=== PATIENT | female | born 1985 | race African-American/Black ===

== ENCOUNTER 2016-07-24 06:35 | Inpatient (IN) | payer OTHER ==
[2016-07-24 08:33] VITALS: BMI 35.0
[2016-07-24] MEDS ORDERED: AMPICILLIN - 2 GM in SODIUM CHLORIDE 100 ML IVPB ONE (09:00)
[2016-07-24] MEDS ORDERED: LACTATED RINGERS SOLUTION 1,000 ML IV ONE (09:37)
[2016-07-24 10:01] LABS: BASOPHIL 0.4 % (0-2.0); EOSINOPHIL 0.3 % (0-4.5); MCH 27.7 pg (25.7-33.7); MCHC 33.4 g/dl (32.0-36.0); MEAN CELL VOLUME 82.9 fl (80-96); MEAN PLT VOLUME 8.1 fl (7.5-11.1); NEUTROPHILS 79.1 % (42.8-82.8); PLATELET COUNT 212 K/MM3 (134-434); RDW 15.4 % (11.6-15.6); WHITE BLOOD COUNT 12.5 K/mm3 (4.0-10.0)
[2016-07-24 10:14] LABS: INR 0.94 (0.82-1.09); PROTHROMBIN TIME (PATIENT) 10.3 SEC (9.98-11.88)
[2016-07-24 10:24] LABS: ALBUMIN 2.6 g/dl (3.4-5.0); ANION GAP 10 (8-16); BILIRUBIN,TOTAL 0.3 mg/dL (0.2-1.0); CALCIUM 8.9 mg/dL (8.5-10.1); CO2 20 mmol/L (21-32); CREATININE 0.7 mg/dL (0.55-1.02); GLUCOSE,RANDOM 93 mg/dL (74-106); SGOT/AST 12 U/L (15-37); SGPT/ALT 13 U/L (12-78); TOT PROT 6.2 g/dl (6.4-8.2); URIC ACID 4.6 mg/dL (2.6-7.2)
[2016-07-24 10:25] LABS: ALK PHOS 214 U/L (45-117)
[2016-07-24 11:34] LABS: HIV 1 & 2 AB NEGATIVE; HIV 1 AGp24 NEGATIVE
[2016-07-24] MEDS ORDERED: AMPICILLIN - 1 GM in SODIUM CHLORIDE 100 ML IVPB ONE ×2 (13:00→17:00)
[2016-07-24 15:16] LABS: URINE APPEARANCE CLEAR; URINE BILIRUBIN NEGATIVE (NEGATIVE); URINE COLOR LTYELLOW; URINE GLUCOSE (UA) NEGATIVE (NEGATIVE); URINE KETONE NEGATIVE (NEGATIVE); URINE LEUK ESTERASE NEGATIVE (NEGATIVE); URINE NITRITE NEGATIVE (NEGATIVE); URINE PROTEIN NEGATIVE (NEGATIVE); URINE UROBILINOGEN NEGATIVE E.U./dl (0.2-1.0)
[2016-07-24 15:23] LABS: URINE BLOOD 1+ (NEGATIVE)
[2016-07-24 15:57] LABS: URINE MUCUS RARE; URINE RBC 4 /hpf (0-3); URINE WBC 7 /hpf (3-5)
--- NOTE | 2016-07-24 21:36 | HP ---
Past Medical History - Primary Care Physician PCP:: Yrn Barlow - Admission Chief Complaint: 37.4 weeks, rom, IDDM History of Present Illness: 31 yo f edc by sonjulian 08/10/16 c/o rom since 5 am today, clear fluid , cx closed, 50 vx -3 mr on admission, fhr cat 1 irregular contraction History Source: Patient Limitations to Obtaining History: No Limitations - Past Medical History Reproductive: Yes: Fibroids ...: 3 ...Para: 0 ...Term: 0 ...: 0 ...Spon : 2 ...Induced : 0 ...Multiple Gestation: 0 ...LMP: 11/04/15 ...EDC by Angelica: 08/10/16 Additional OB History: hx of second trimester 23 weeks vaginal delivery, baby Endocrine: Yes: Diabetes Mellitus (on insulin , non complient) - Past Surgical History Hx Myomectomy: No Hx Transabdominal Cerclage: No Additional Surgical History: hx of ovarian cancer, s/p debulking and chemo, hx of fibroid uterus - Smoking History Smoking history: Never smoked Have you smoked in the past 12 months: No Aproximately how many cigarettes per day: 0 - Alcohol/Substance Use Hx Alcohol Use: No - Social History History of Recent Travel: No Home Medications - Allergies Allergies/Adverse Reactions: Allergies Allergy/AdvReac Type Severity Reaction Status Date / Time No Known Allergies Allergy Verified 07/24/16 11:16 - Home Medications Home Medications: Ambulatory Orders Vit/Iron Fumarate/FA [ Tablet] 1 each PO DAILY 09/20/14 Insulin Regular, Human [Humulin R U-500 Kwikpen] 22 unit SQ HS 07/24/16 Review of Systems - Review of Systems Constitutional: reports: No Symptoms Eyes: reports: No Symptoms HENT: reports: No Symptoms Neck: reports: No Symptoms Cardiovascular: reports: No Symptoms Respiratory: reports: No Symptoms Gastrointestinal: reports: No Symptoms Genitourinary: reports: No Symptoms Musculoskeletal: reports: No Symptoms Integumentary: reports: No Symptoms Neurological: reports: No Symptoms Endocrine: reports: No Symptoms Hematology/Lymphatic: reports: No Symptoms Psychiatric: reports: No Symptoms Physical Exam - Maternity Vital Signs: Vital Signs Temperature 98.8 F 07/24/16 20:00 Pulse Rate 111 H 07/24/16 20:00 Respiratory Rate 20 07/24/16 18:00 Blood Pressure 159/87 07/24/16 20:00 O2 Sat by Pulse Oximetry (%) Constitutional: Yes: Well Nourished, No Distress, Calm Eyes: Yes: WNL, Conjunctiva Clear, EOM Intact HENT: Yes: WNL, Atraumatic, Normocephalic Neck: Yes: WNL, Supple, Trachea Midline Cardiovascular: Yes: WNL, Regular Rate and Rhythm Breast(s): Yes: WNL - Abdominal Exam/OB Fundal Height: 38 Number of Fetuses: Single Presentation: Vertex Contractions: Yes Regularity: Irregular Intensity: Mod/Strong Monitor Mode: External Heart Rate Location: [facility] Category: I Accelerations: Non-Uniform Decelerations: None - Vaginal Exam/OB Vaginal Bleediing: No Speculum Exam: No Dilatation (cm): closed Effacement (%): 50 Amniotic Membrane Status: Ruptured Nitrazine Test: Positive Amniotic Fluid: Yes: Clear Presentation: Vertex/Position Station: -3 - Physical Exam Musculoskeletal: Yes: WNL Extremities: Yes: WNL Edema: Yes Edema: LLE: 1+, RLE: 1+ Deep Tendon Reflex Grade: Normal +2 Psychiatric: Yes: WNL - Labs Lab Results: CBC, BMP 07/24/16 09:45 07/24/16 09:45 Hemorrhage Risk Assessment - Risk Factors Medium Risk Factors: Yes: Prior , uterine surgery,or multiple laparotomies Risk Score: 1 Risk Level: Medium Risk Problem List - Problems (1) with 37 or more completed weeks gestation Code(s): [id number] - (2) membrane rupture Code(s): PFP0686 - (3) Insulin controlled gestational diabetes mellitus (GDM) during Code(s): O24.414 - GESTATIONAL DIABETES IN , INSULIN CONTROLLED Qualifiers: Trimester: third trimester Qualified Code(s): O24.414 - Gestational diabetes mellitus in , insulin controlled (4) Fibroid uterus Code(s): D25.9 - LEIOMYOMA OF UTERUS, UNSPECIFIED Qualifiers: Uterine leiomyoma location: intramural Qualified Code(s): D25.1 - Intramural leiomyoma of uterus (5) Ovarian cancer Code(s): C56.9 - MALIGNANT NEOPLASM OF UNSPECIFIED OVARY Qualifiers: Laterality: unspecified laterality Qualified Code(s): C56.9 - Malignant neoplasm of unspecified ovary Assessment/Plan admit, heart monitoring, iv ampicillin prophylactic, bgm
--- NOTE | 2016-07-24 21:46 | PN ---
Progress Note (short form) - Note Progress Note: cx 54 to 5 cm, rom ,clear , fhr variable decel with short episode of garry cardia, advised c/s rba discussed, risk of infectin, bleeding, injury to bowel, bladder, vesseles , ureter discusse Problem List - Problems (1) with 37 or more completed weeks gestation Code(s): [id number] - (2) membrane rupture Code(s): WCB1889 - (3) Insulin controlled gestational diabetes mellitus (GDM) during Code(s): O24.414 - GESTATIONAL DIABETES IN , INSULIN CONTROLLED Qualifiers: Trimester: third trimester Qualified Code(s): O24.414 - Gestational diabetes mellitus in , insulin controlled (4) Fibroid uterus Code(s): D25.9 - LEIOMYOMA OF UTERUS, UNSPECIFIED Qualifiers: Uterine leiomyoma location: intramural Qualified Code(s): D25.1 - Intramural leiomyoma of uterus (5) Ovarian cancer Code(s): C56.9 - MALIGNANT NEOPLASM OF UNSPECIFIED OVARY Qualifiers: Laterality: unspecified laterality Qualified Code(s): C56.9 - Malignant neoplasm of unspecified ovary
[2016-07-24] MEDS ORDERED: morphine SULFATE/Preservative Free 0.5 MG/ML (1cc Syringe) IT ONE (22:10)
[2016-07-24] MEDS ORDERED: BENZOCAINE 28 GM HEMORRHOIDAL OINTMENT PR PRN (23:00)
[2016-07-24] MEDS ORDERED: diphenhydrAMINE HCL 25 MG CAPSULE (FP) PO PRN (23:00)
[2016-07-24] MEDS ORDERED: OXYTOCIN 20 UNITS in 0.9% NS 1,000 ML IV SCH (23:00)
[2016-07-24] MEDS ORDERED: oxyCODONE HCL 5 MG TABLET PO PRN ×2 (23:00)
[2016-07-24] MEDS ORDERED: WITCH HAZEL 50% (TUCKS) 40 PAD/JAR PAD TP PRN (23:00)
[2016-07-24] MEDS ORDERED: BENZOCAINE 20% 57 GM BOTTLE TP PRN (23:00)
[2016-07-24] MEDS ORDERED: METHYLERGONOVINE MALEATE 0.2 MG/1 ML AMP IM PRN (23:00)
[2016-07-24 23:30] LABS: ARTERIAL BLOOD GAS pH 7.28 (7.35-7.45)
[2016-07-24 23:31] LABS: ARTERIAL BLOOD GAS HCO3 21.9 meq/L (22-26)
[2016-07-24 23:33] LABS: ARTERIAL BLD GAS O2 SATURATION 31.4 % (90-98.9); ARTERIAL BLOOD GAS PO2 18.6 mmHg (80-100)
[2016-07-24] MEDS ORDERED: ONDANSETRON 4 MG/2 ML VIAL IVPB PRN (23:33)
[2016-07-24 23:35] LABS: ARTERIAL BLOOD GAS pH 7.33 (7.35-7.45)
[2016-07-24 23:36] LABS: ARTERIAL BLOOD GAS BASE EXCESS -5.2 meq/l (-2-2); ARTERIAL BLOOD GAS HCO3 19.9 meq/L (22-26)
[2016-07-24 23:37] LABS: ARTERIAL BLOOD GAS PO2 29.7 mmHg (80-100)
[2016-07-24 23:38] LABS: ARTERIAL BLD GAS O2 SATURATION 59.5 % (90-98.9)
[2016-07-25] MEDS: IBUPROFEN 800 MG/8 ML IJ IVPB PRN ×2 (01:43→10:34)
[2016-07-25] MEDS: CEFAZOLIN (PRE-DOCKED) 50 ML IVPB SCH ×2 (02:51→09:22)
[2016-07-25 03:28] LABS: BASOPHIL 0.3 % (0-2.0); MCH 27.8 pg (25.7-33.7); MCHC 33.3 g/dl (32.0-36.0); MEAN CELL VOLUME 83.5 fl (80-96); NEUTROPHILS 91.1 % (42.8-82.8); PLATELET COUNT 219 K/MM3 (134-434); WHITE BLOOD COUNT 20.4 K/mm3 (4.0-10.0)
--- NOTE | 2016-07-25 07:11 | PN ---
Progress Note (short form) - Note Progress Note: pod 1 s/p c/s doing well, has mild cramps CBC, BMP 07/24/16 09:45 07/24/16 09:45 Last Vital Signs Temp Pulse Resp BP Pulse Ox 99.2 F 107 H 18 132/68 100 07/25/16 06:00 07/25/16 06:00 07/25/16 06:00 07/25/16 06:00 07/25/16 00:15 abdomen soft, no distension , no cva, BS present lochia mild clemons clear urine pod 1 afebrile, plan ambulate cbc. advance diet Problem List - Problems (1) with 37 or more completed weeks gestation Code(s): [id number] - (2) membrane rupture Code(s): LXD2580 - (3) Insulin controlled gestational diabetes mellitus (GDM) during Code(s): O24.414 - GESTATIONAL DIABETES IN , INSULIN CONTROLLED Qualifiers: Trimester: third trimester Qualified Code(s): O24.414 - Gestational diabetes mellitus in , insulin controlled (4) Fibroid uterus Code(s): D25.9 - LEIOMYOMA OF UTERUS, UNSPECIFIED Qualifiers: Uterine leiomyoma location: intramural Qualified Code(s): D25.1 - Intramural leiomyoma of uterus (5) Ovarian cancer Code(s): C56.9 - MALIGNANT NEOPLASM OF UNSPECIFIED OVARY Qualifiers: Laterality: unspecified laterality Qualified Code(s): C56.9 - Malignant neoplasm of unspecified ovary
[2016-07-25 07:29] LABS: BASOPHIL 0.3 % (0-2.0); EOSINOPHIL 0.1 % (0-4.5); MCH 27.9 pg (25.7-33.7); MCHC 33.7 g/dl (32.0-36.0); MEAN CELL VOLUME 82.9 fl (80-96); MEAN PLT VOLUME 8.4 fl (7.5-11.1); NEUTROPHILS 78.6 % (42.8-82.8); PLATELET COUNT 169 K/MM3 (134-434); RDW 15.4 % (11.6-15.6)
[2016-07-25] MEDS ORDERED: TUBERCULIN PPD 5 TU/0.1ML SYRINGE (IN PATIENT USE ONLY) ID ONE (08:00)
--- NOTE | 2016-07-25 08:04 | PN ---
Progress Note (short form) - Note Progress Note: CORRECTION: NOT A PROCEDURE NOTE ANESTHESIOLOGY POST-OP CHECK 31F S/P primary under spinal anesthesia, POD #1. No acute complaints. Denies N/V, headache, backache, numbness, weakness. Not yet OOB, clemons in place. Pain 4-5/10 and tolerable. Vital Signs Temperature 99.2 F 07/25/16 06:00 Pulse Rate 107 H 07/25/16 06:00 Respiratory Rate 20 07/25/16 08:00 Blood Pressure 132/68 07/25/16 06:00 O2 Sat by Pulse Oximetry (%) 100 07/25/16 00:15 Active Medications Acetaminophen (Tylenol -) 650 mg PO Q4H PRN PRN Reason: FEVER OR PAIN Benzocaine (Americaine Ointment -) 1 applic [place] PRN PRN PRN Reason: PAIN Benzocaine (Americaine 20% [place] -) 1 spray TP PRN PRN PRN Reason: PAIN Bisacodyl (Dulcolax Suppository -) 10 mg RC PRN PRN PRN Reason: CONSTIPATION Diphenhydramine HCl (Benadryl -) 25 mg PO Q8H PRN PRN Reason: FOR ITCHING Diphenhydramine HCl (Benadryl Injection -) 25 mg IVPUSH Q4H PRN PRN Reason: Pruritis Enoxaparin Sodium (Lovenox -) 40 mg SQ DAILY ROHAN Cefazolin Sodium (Ancef 1gm Ivpb (Pre-Docked)) 50 mls @ 100 mls/hr IVPB Q8H-IV ROHAN Stop: 07/25/16 10:29 Last Admin: 07/25/16 02:51 Dose: 100 mls/hr Dextrose/Lactated Ringer's (D5-Lr -) 1,000 mls @ 125 mls/hr IV ASDIR ROHAN Ibuprofen (Motrin -) 600 mg PO Q4H PRN PRN Reason: PAIN Ibuprofen (Caldolor Injection -) 800 mg IVPB Q6H PRN PRN Reason: PAIN Stop: 07/25/16 11:01 Last Admin: 07/25/16 01:43 Dose: 800 mg Methylergonovine Maleate (Methergine Injection -) 0.2 mg IM Q4H PRN PRN Reason: EXCESSIVE BLEEDING Oxycodone HCl (Roxicodone -) 5 mg PO Q4H PRN PRN Reason: PAIN LEVEL 1-5 Oxycodone HCl (Roxicodone -) 10 mg PO Q4H PRN PRN Reason: PAIN LEVEL 6-10 Senna/Docusate Sodium (Pericolace -) 2 tablet PO HS PRN PRN Reason: CONSTIPATION Simethicone (Mylicon -) 80 mg PO Q4H PRN PRN Reason: GAS Witch Kerline/Glycerin (Tucks Pads -) 1 pad TP PRN PRN PRN Reason: PAIN Gen: awake, alert Ext: No motor or sensory deficits. No apparent anesthesia complications, pain controlled. Continue management as per primary team.
[2016-07-25] MEDS: ENOXAPARIN NA (PORCINE) 40 MG/0.4 ML DISP.SYRIN SQ SCH (09:23)
--- NOTE | 2016-07-25 10:23 | PN ---
Progress Note, Physician Chief Complaint: Pt. ambulating and voiding, pain controlled, no anesthesia complaints. - Current Medication List Current Medications: Active Medications Acetaminophen (Tylenol -) 650 mg PO Q4H PRN PRN Reason: FEVER OR PAIN Benzocaine (Americaine Ointment -) 1 applic [place] PRN PRN PRN Reason: PAIN Benzocaine (Americaine 20% [place] -) 1 spray TP PRN PRN PRN Reason: PAIN Bisacodyl (Dulcolax Suppository -) 10 mg RC PRN PRN PRN Reason: CONSTIPATION Diphenhydramine HCl (Benadryl -) 25 mg PO Q8H PRN PRN Reason: FOR ITCHING Diphenhydramine HCl (Benadryl Injection -) 25 mg IVPUSH Q4H PRN PRN Reason: Pruritis Enoxaparin Sodium (Lovenox -) 40 mg SQ DAILY ROHAN Last Admin: 07/25/16 09:23 Dose: 40 mg Cefazolin Sodium (Ancef 1gm Ivpb (Pre-Docked)) 50 mls @ 100 mls/hr IVPB Q8H-IV ROHAN Stop: 07/25/16 10:29 Last Admin: 07/25/16 09:22 Dose: 100 mls/hr Dextrose/Lactated Ringer's (D5-Lr -) 1,000 mls @ 125 mls/hr IV ASDIR ROHAN Ibuprofen (Motrin -) 600 mg PO Q4H PRN PRN Reason: PAIN Ibuprofen (Caldolor Injection -) 800 mg IVPB Q6H PRN PRN Reason: PAIN Stop: 07/25/16 11:01 Last Admin: 07/25/16 01:43 Dose: 800 mg Methylergonovine Maleate (Methergine Injection -) 0.2 mg IM Q4H PRN PRN Reason: EXCESSIVE BLEEDING Oxycodone HCl (Roxicodone -) 5 mg PO Q4H PRN PRN Reason: PAIN LEVEL 1-5 Oxycodone HCl (Roxicodone -) 10 mg PO Q4H PRN PRN Reason: PAIN LEVEL 6-10 Senna/Docusate Sodium (Pericolace -) 2 tablet PO HS PRN PRN Reason: CONSTIPATION Simethicone (Mylicon -) 80 mg PO Q4H PRN PRN Reason: GAS Witch Kerline/Glycerin (Tucks Pads -) 1 pad TP PRN PRN PRN Reason: PAIN - Objective Vital Signs: Vital Signs Temperature 98.6 F 07/25/16 08:02 Pulse Rate 113 H 07/25/16 08:02 Respiratory Rate 20 07/25/16 08:02 Blood Pressure 148/80 07/25/16 08:02 O2 Sat by Pulse Oximetry (%) 100 07/25/16 00:15 Constitutional: Yes: Well Nourished, No Distress, Calm Musculoskeletal: Yes: WNL Neurological: Yes: WNL, Alert, Oriented ...Motor Strength: WNL Labs: CBC, BMP 07/25/16 06:45 07/24/16 09:45 INR, PTT INR 0.94 (0.82-1.09) 07/24/16 09:45 Assessment/Plan POD#1 s/p primary under spinal with duramorph. Doing well. D/C from anesthesia care.
[2016-07-25 12:06] LABS: MCH 27.5 pg (25.7-33.7); MCHC 33.3 g/dl (32.0-36.0); MEAN CELL VOLUME 82.5 fl (80-96); MEAN PLT VOLUME 7.6 fl (7.5-11.1); PLATELET COUNT 162 K/MM3 (134-434); RDW 15.7 % (11.6-15.6); WHITE BLOOD COUNT 13.1 K/mm3 (4.0-10.0)
[2016-07-25] MEDS: SIMETHICONE 80 MG TAB.CHEW (FP) PO PRN ×3 (14:34→22:58)
[2016-07-25] MEDS: ACETAMINOPHEN 325 MG TABLET (FP) PO PRN ×3 (14:34→22:57)
--- NOTE | 2016-07-25 14:48 | OP ---
DATE OF OPERATION: 07/24/2016 PROCEDURE: Primary low-segment transverse section. PREOPERATIVE DIAGNOSIS: 1. at 37 weeks. 2. Ruptured membranes. 3. Nonreassuring heart rate. 4. History of insulin-dependent diabetes. 5. Fibroid uterus. 6. History of previous ovarian cancer. SURGEON: Anju Gonzalez MD MANAGER [employer] SALES: Sloane Bautista MD ESTIMATED BLOOD LOSS: 500 mL ANESTHESIA: Spinal. ANESTHESIOLOGIST: Mirza Lambert MD OPERATIVE PROCEDURE: Patient was taken to the operating room. Under adequate spinal anesthesia, abdomen and perineum were prepped and draped. A Pfannenstiel abdominal skin incision was made. Abdominal wall was cut layer by layer until peritoneum was exposed and incised. Upon entering the abdominal cavity, the lower uterine segment was identified and ureterovesical fold of the peritoneum established. Bladder was pushed down. A low thoracic incision was made. Incision extended laterally. Amniotic sac was entered. The head delivered from direct occiput posterior position. Cord around the neck x 1 reduced. Live baby was delivered without any difficulty. Placenta was delivered manually. Uterine cavity was cleaned of all remaining tissue. Uterine incision was closed in 2 layers, first layer with 0 Biosyn continuous suture and the second layer with 0 Biosyn, imbricating the first layer. Bladder flap was closed with 0 Biosyn continuous suture. Both tubes and ovaries were checked. The left tube and ovary were missing because of the previous history of ovarian cancer and history of salpingo-oophorectomy on the left. The right ovary was checked and normal. All the laparotomy sponge, needle and instrument counts were correct, and the peritoneum was closed with 0 Biosyn continuous suture. Muscles were brought together with interrupted suture of 0 Biosyn. Fascia was closed with 0 Biosyn continuous suture, subcutaneous fascia with interrupted suture of 0 Biosyn, and the skin was closed with 3-0 Biosyn subcuticular continuous suture. Patient tolerated the procedure well and left the OR in good condition. ANJU GONZALEZ M.D. [id number]
[2016-07-25] MEDS: IBUPROFEN 600 MG TABLET (FP) PO PRN ×2 (18:11→22:57)
[2016-07-25] MEDS: DEXTROSE 5%-LACTATED RINGERS 1,000 ML IV SCH (19:31)
[2016-07-25 21:55] LABS: MCH 28.4 pg (25.7-33.7); MCHC 33.9 g/dl (32.0-36.0); MEAN CELL VOLUME 83.7 fl (80-96); MEAN PLT VOLUME 7.6 fl (7.5-11.1); PLATELET COUNT 156 K/MM3 (134-434); RDW 15.1 % (11.6-15.6); WHITE BLOOD COUNT 14.1 K/mm3 (4.0-10.0)
[2016-07-25] MEDS ORDERED: BISACODYL 10 MG SUPP.RECT RC PRN (23:00)
[2016-07-26] MEDS: DEXTROSE 5%-LACTATED RINGERS 1,000 ML IV SCH (00:04)
[2016-07-26] MEDS: SIMETHICONE 80 MG TAB.CHEW (FP) PO PRN ×3 (03:47→20:45)
[2016-07-26] MEDS: IBUPROFEN 600 MG TABLET (FP) PO PRN ×2 (03:47→08:18)
[2016-07-26] MEDS: ACETAMINOPHEN 325 MG TABLET (FP) PO PRN ×2 (03:47→08:15)
[2016-07-26] MEDS: ENOXAPARIN NA (PORCINE) 40 MG/0.4 ML DISP.SYRIN SQ SCH (09:04)
[2016-07-26] MEDS ORDERED: NIFEdipine E.R. 30 MG TABLET (FP) PO SCH (16:30)
--- NOTE | 2016-07-26 17:22 | PN ---
Post Progress Note - Subjective Subjective: Pt is c/o leg edema, otherwise no complaints. Denies headache, scotoma, blurry vision, RUQ pain. Post Day: 2 Type of Delivery: Primary C/S Vital Signs: Vital Signs Temperature 98.5 F 07/26/16 14:00 Pulse Rate 107 H 07/26/16 15:03 Respiratory Rate 20 07/26/16 15:03 Blood Pressure 150/96 07/26/16 15:03 O2 Sat by Pulse Oximetry (%) 100 07/25/16 00:15 Breast Exam: Yes: Soft Uterus: Yes: Fundus below umbilicus, Non-tender Incision: Yes: Sutures intact (clean, dry) Abdomen/GI: Yes: Abdomen soft, Tolerating PO Lochia: Yes: Rubra Lochia, amount: Small Extremities: Yes: Calves non-tender Perineum: Yes: Intact Activity: Ambulating - Labs Labs: CBC WBC 14.1 K/mm3 (4.0-10.0) H 07/25/16 21:50 RBC 2.98 M/mm3 (3.60-5.2) L D 07/25/16 21:50 Hgb 8.5 GM/dL (10.7-15.3) L D 07/25/16 21:50 Hct 24.9 % (32.4-45.2) L D 07/25/16 21:50 MCV 83.7 fl (80-96) 07/25/16 21:50 MCHC 33.9 g/dl (32.0-36.0) 07/25/16 21:50 RDW 15.1 % (11.6-15.6) 07/25/16 21:50 Plt Count 156 K/MM3 (134-434) 07/25/16 21:50 MPV 7.6 fl (7.5-11.1) 07/25/16 21:50 Neutrophils % 78.6 % (42.8-82.8) 07/25/16 06:45 Lymphocytes % 13.3 % (8-40) 07/25/16 06:45 Monocytes % 7.7 % (3.8-10.2) 07/25/16 06:45 Eosinophils % 0.1 % (0-4.5) 07/25/16 06:45 Basophils % 0.3 % (0-2.0) 07/25/16 06:45 Retic Count 2.12 % (0.5-1.5) H 07/24/16 09:45 Haptoglobin 150 mg/dL (34-200) 07/24/16 09:45 Assessment/Plan 31 yo P1 s/p primary LT C/S. Elevated BP noted. Plan to check labs and Procardia XL to control BP. Continue routine postop care. Ambulation encouraged.
[2016-07-26 18:20] LABS: BASOPHIL 0.1 % (0-2.0); EOSINOPHIL 0.7 % (0-4.5); MCH 28.2 pg (25.7-33.7); MCHC 33.9 g/dl (32.0-36.0); MEAN CELL VOLUME 83.2 fl (80-96); MEAN PLT VOLUME 8.1 fl (7.5-11.1); NEUTROPHILS 84.1 % (42.8-82.8); PLATELET COUNT 176 K/MM3 (134-434); RDW 15.6 % (11.6-15.6); WHITE BLOOD COUNT 18.3 K/mm3 (4.0-10.0)
[2016-07-26 18:43] LABS: ALBUMIN 2.2 g/dl (3.4-5.0); ALK PHOS 139 U/L (45-117); ANION GAP 10 (8-16); BILIRUBIN,TOTAL 0.3 mg/dL (0.2-1.0); CO2 24 mmol/L (21-32); CREATININE 0.7 mg/dL (0.55-1.02); GLUCOSE,RANDOM 158 mg/dL (74-106); SGOT/AST 19 U/L (15-37); SGPT/ALT 13 U/L (12-78); TOT PROT 5.2 g/dl (6.4-8.2)
[2016-07-26] MEDS: ACETAMINOPHEN WITH CODEINE 300MG/30MG TABLET PO PRN (20:45)
[2016-07-26] MEDS: SENNOSIDES/DOCUSATE COMBO (SENNA PLUS) TABLET (UD) PO PRN (20:46)
[2016-07-26] MEDS: NIFEdipine E.R. 30 MG TABLET (FP) PO SCH (22:48)
[2016-07-27 00:13] LABS: URINE APPEARANCE CLEAR; URINE BILIRUBIN NEGATIVE (NEGATIVE); URINE COLOR COLORLESS; URINE GLUCOSE (UA) NEGATIVE (NEGATIVE); URINE KETONE TRACE (NEGATIVE); URINE LEUK ESTERASE NEGATIVE (NEGATIVE); URINE NITRITE NEGATIVE (NEGATIVE); URINE PROTEIN NEGATIVE (NEGATIVE); URINE UROBILINOGEN NEGATIVE E.U./dl (0.2-1.0)
[2016-07-27 00:33] LABS: URINE BLOOD 2+ (NEGATIVE)
[2016-07-27] MEDS: SIMETHICONE 80 MG TAB.CHEW (FP) PO PRN ×4 (01:20→17:55)
[2016-07-27] MEDS: ACETAMINOPHEN WITH CODEINE 300MG/30MG TABLET PO PRN ×4 (01:21→17:55)
[2016-07-27 01:41] LABS: URINE MUCUS RARE; URINE RBC 25 /hpf (0-3); URINE WBC 1 /hpf (3-5)
[2016-07-27 07:34] LABS: BASOPHIL 0.2 % (0-2.0); EOSINOPHIL 0.4 % (0-4.5); MCH 28.2 pg (25.7-33.7); MCHC 34.4 g/dl (32.0-36.0); MEAN CELL VOLUME 82.2 fl (80-96); MEAN PLT VOLUME 7.5 fl (7.5-11.1); NEUTROPHILS 82.6 % (42.8-82.8); PLATELET COUNT 192 K/MM3 (134-434); RDW 15.3 % (11.6-15.6); WHITE BLOOD COUNT 17.9 K/mm3 (4.0-10.0)
[2016-07-27] MEDS: ENOXAPARIN NA (PORCINE) 40 MG/0.4 ML DISP.SYRIN SQ SCH (09:53)
[2016-07-27] MEDS: NIFEdipine E.R. 30 MG TABLET (FP) PO SCH (09:54)
[2016-07-27] MEDS ORDERED: LABETALOL HCL 200 MG TABLET (FP) PO PRN (10:51)
[2016-07-27 12:24] LABS: BASOPHIL 0.3 % (0-2.0); EOSINOPHIL 0.5 % (0-4.5); MCH 28.2 pg (25.7-33.7); MCHC 33.8 g/dl (32.0-36.0); MEAN CELL VOLUME 83.3 fl (80-96); MEAN PLT VOLUME 7.4 fl (7.5-11.1); PLATELET COUNT 220 K/MM3 (134-434); RDW 15.7 % (11.6-15.6); WHITE BLOOD COUNT 20.8 K/mm3 (4.0-10.0)
--- NOTE | 2016-07-27 15:32 | CONSULT ---
Consult - text type - Consultation Consultation Note: Renal Consult for hypertension and tachycardia This is a 31 year old AA woman with PMhx of ? Hypertension (treated for about 1 month), DM who presented at 37 weeks gestation and now s/p primary with hypertension and elevated HR. Pt denies any hypertension during . On insulin for DM ( induced vs. underlying). Pt reports some back pain and pain at the incision site. + low grade temp. No SOB, Chest pain, KOVACS. + LE edema. No N/V/D. Pt was on Procadia XL for BP control. PMhx: as above Allergies: NKDA Family Hx: NC Social Hx: No T/A/D ROS: as per HPI, all other pertinent ros negative Home Meds: Home Medications Medication Instructions Recorded Vit/Iron Fumarate/FA 1 each PO DAILY 09/20/14 [ Tablet] Insulin Regular, Human [Humulin R 22 unit SQ HS 07/24/16 U-500 Kwikpen] Vital Signs Temperature 98.7 F 07/27/16 13:00 Pulse Rate 130 H 07/27/16 13:00 Respiratory Rate 20 07/27/16 13:00 Blood Pressure 133/83 07/27/16 13:00 O2 Sat by Pulse Oximetry (%) 100 07/25/16 00:15 Intake & Output 07/24/16 07/25/16 07/26/16 07/27/16 23:59 23:59 23:59 23:59 Intake Total 2000 3927 Output Total 430 2150 200 Balance 1570 1777 -200 Weight 204 lb Gen: NAD, well appearing HEENT: NC/AT, MMM, No JVD CVS: tachycardic, No M/R Lungs: CTA, no rales or wheeze Abd: + tenderness Ext: 2+ edema in B/L LE, no clubbing or cyanosis Neuro: No focal defects CBC, BMP 07/27/16 12:00 07/26/16 17:50 Laboratory Tests 07/26/16 07/26/16 07/27/16 17:50 23:58 12:00 MCV 83.3 Uric Acid 5.0 Calcium 8.0 L Albumin 2.2 L Urine Protein Negative Urine Blood 2+ H Current Medications Acetaminophen (Tylenol -) 650 mg PO Q4H PRN PRN Reason: FEVER OR PAIN Last Admin: 07/26/16 08:15 Dose: 650 mg Acetaminophen/Codeine Phosphate (Tylenol # 3 -) 1 tab PO Q4H PRN PRN Reason: FEVER OR PAIN Last Admin: 07/27/16 09:53 Dose: 1 tab Benzocaine (Americaine Ointment -) 1 applic [place] PRN PRN PRN Reason: PAIN Benzocaine (Americaine 20% [place] -) 1 spray TP PRN PRN PRN Reason: PAIN Bisacodyl (Dulcolax Suppository -) 10 mg RC PRN PRN PRN Reason: CONSTIPATION Diphenhydramine HCl (Benadryl -) 25 mg PO Q8H PRN PRN Reason: FOR ITCHING Diphenhydramine HCl (Benadryl Injection -) 25 mg IVPUSH Q4H PRN PRN Reason: Pruritis Last Admin: 07/25/16 16:36 Dose: 25 mg Enoxaparin Sodium (Lovenox -) 40 mg SQ DAILY ROHAN Last Admin: 07/27/16 09:53 Dose: 40 mg Ibuprofen (Motrin -) 600 mg PO Q4H PRN PRN Reason: PAIN Last Admin: 07/26/16 08:18 Dose: 600 mg Labetalol HCl (Normodyne -) 200 mg PO Q6H PRN PRN Reason: BP > 140/90 Methylergonovine Maleate (Methergine Injection -) 0.2 mg IM Q4H PRN PRN Reason: EXCESSIVE BLEEDING Senna/Docusate Sodium (Pericolace -) 2 tablet PO HS PRN PRN Reason: CONSTIPATION Last Admin: 07/26/16 20:46 Dose: 2 tablet Simethicone (Mylicon -) 80 mg PO Q4H PRN PRN Reason: GAS Last Admin: 07/27/16 09:53 Dose: 80 mg Witch Kerline/Glycerin (Tucks Pads -) 1 pad TP PRN PRN PRN Reason: PAIN A/P 31 year old AA woman with PMhx of ? Hypertension (treated for about 1 month), DM who presented at 37 weeks gestation and now s/p primary with hypertension and elevated HR. # Hypertension likely secondary to induced hypertension +/- pain induced hypertension UA showed no protein so less likely preeclampsia Check UPCR Continue Labetalol 200mg PRN for SBP > 140 or DBP > 90 #Tachycardia EKG showed sinus tachycardia Etiology -? Fever ? Anemia ? Pain Pt with persistent LE edema and some tenderness -> check Doppler to r/o DVT ( less likely) Continue to monitor if HR does not improve may need cardiology evaluation Check TSH #Postpatrum Day #2 Supportive Care Pain control #DM not currently on insulin monitor FS Thank you Will follow Bill Chapa DO
--- NOTE | 2016-07-27 19:04 | EKG ---
Test Reason : Blood Pressure : / mmHG Vent. Rate : 119 BPM Atrial Rate : 119 BPM P-R Int : 130 ms QRS Dur : 074 ms QT Int : 310 ms P-R-T Axes : 059 027 029 degrees QTc Int : 436 ms SINUS TACHYCARDIA OTHERWISE NORMAL ECG WHEN COMPARED WITH ECG OF 24-JUL-2016 23:54, NO SIGNIFICANT CHANGE WAS FOUND Confirmed by LORENZO MARCELO MD ([id number]) on 07/27/2016 7:04:17 PM Referred By: Danial LYMAN Confirmed By:LORENZO MARCELO MD
--- NOTE | 2016-07-27 19:05 | EKG ---
Test Reason : Blood Pressure : / mmHG Vent. Rate : 112 BPM Atrial Rate : 112 BPM P-R Int : 122 ms QRS Dur : 068 ms QT Int : 326 ms P-R-T Axes : 054 023 028 degrees QTc Int : 444 ms SINUS TACHYCARDIA OTHERWISE NORMAL ECG NO PREVIOUS ECGS AVAILABLE Confirmed by LORENZO MARCELO MD ([id number]) on 07/27/2016 7:04:38 PM Referred By: Confirmed By:LORENZO MARCELO MD
--- NOTE | 2016-07-27 21:13 | PN ---
Post Progress Note - Subjective Subjective: Pt w/o complaints Post Day: 3 Type of Delivery: Primary C/S Vital Signs: Vital Signs Temperature 98.4 F 07/27/16 21:04 Pulse Rate 116 H 07/27/16 21:04 Respiratory Rate 20 07/27/16 21:04 Blood Pressure 139/66 07/27/16 21:04 O2 Sat by Pulse Oximetry (%) 100 07/25/16 00:15 Breast Exam: Yes: Soft Uterus: Yes: Fundus Firm, Fundus below umbilicus Incision: Yes: Sutures intact Abdomen/GI: Yes: Abdomen soft, Passing flatus, Tolerating PO Lochia: Yes: Rubra Lochia, amount: Small Extremities: Yes: Calves non-tender, Edema Perineum: Yes: Intact Activity: Ambulating - Labs Labs: CBC WBC 20.8 K/mm3 (4.0-10.0) H 07/27/16 12:00 RBC 3.49 M/mm3 (3.60-5.2) L 07/27/16 12:00 Hgb 9.8 GM/dL (10.7-15.3) L 07/27/16 12:00 Hct 29.1 % (32.4-45.2) L 07/27/16 12:00 MCV 83.3 fl (80-96) 07/27/16 12:00 MCHC 33.8 g/dl (32.0-36.0) 07/27/16 12:00 RDW 15.7 % (11.6-15.6) H 07/27/16 12:00 Plt Count 220 K/MM3 (134-434) 07/27/16 12:00 MPV 7.4 fl (7.5-11.1) L 07/27/16 12:00 Neutrophils % 83.0 % (42.8-82.8) H 07/27/16 12:00 Lymphocytes % 10.4 % (8-40) 07/27/16 12:00 Monocytes % 5.8 % (3.8-10.2) 07/27/16 12:00 Eosinophils % 0.5 % (0-4.5) 07/27/16 12:00 Basophils % 0.3 % (0-2.0) 07/27/16 12:00 Retic Count 2.12 % (0.5-1.5) H 07/24/16 09:45 Haptoglobin 150 mg/dL (34-200) 07/24/16 09:45 Assessment/Plan 31 yo P1 s/p primary LT C/S. BP improved. Appreciate Dr. Chapa consult. Continue routine postop care. Ambulation encouraged.
[2016-07-27] MEDS: SENNOSIDES/DOCUSATE COMBO (SENNA PLUS) TABLET (UD) PO PRN (22:28)
[2016-07-28 08:02] VITALS: BP 148/80; PULSE 99; TEMP 98.3
[2016-07-28 08:36] LABS: CREATININE 0.6 mg/dL (0.55-1.02)
[2016-07-28 08:46] LABS: THYROID STIMULATING HORMONE 1.05 uIU/ml (0.358-3.74)
[2016-07-28] MEDS: ENOXAPARIN NA (PORCINE) 40 MG/0.4 ML DISP.SYRIN SQ SCH (10:16)
[2016-07-28] MEDS: ACETAMINOPHEN WITH CODEINE 300MG/30MG TABLET PO PRN (11:23)
--- NOTE | 2016-07-28 12:34 | PN ---
Post Progress Note - Subjective Subjective: Feels well. Desires to go home. Post Day: 4 Type of Delivery: Primary C/S Vital Signs: Vital Signs Temperature 98.3 F 07/28/16 07:58 Pulse Rate 99 H 07/28/16 07:58 Respiratory Rate 20 07/28/16 07:58 Blood Pressure 148/80 07/28/16 07:58 O2 Sat by Pulse Oximetry (%) 100 07/25/16 00:15 Breast Exam: Yes: Soft Uterus: Yes: Fundus Firm, Fundus below umbilicus, Non-tender Incision: Yes: Sutures intact Abdomen/GI: Yes: Abdomen soft, Passing flatus, Tolerating PO Lochia: Yes: Rubra Lochia, amount: Small Extremities: Yes: Calves non-tender, Edema Perineum: Yes: Intact Activity: Ambulating - Labs Labs: CBC WBC 20.8 K/mm3 (4.0-10.0) H 07/27/16 12:00 RBC 3.49 M/mm3 (3.60-5.2) L 07/27/16 12:00 Hgb 9.8 GM/dL (10.7-15.3) L 07/27/16 12:00 Hct 29.1 % (32.4-45.2) L 07/27/16 12:00 MCV 83.3 fl (80-96) 07/27/16 12:00 MCHC 33.8 g/dl (32.0-36.0) 07/27/16 12:00 RDW 15.7 % (11.6-15.6) H 07/27/16 12:00 Plt Count 220 K/MM3 (134-434) 07/27/16 12:00 MPV 7.4 fl (7.5-11.1) L 07/27/16 12:00 Neutrophils % 83.0 % (42.8-82.8) H 07/27/16 12:00 Lymphocytes % 10.4 % (8-40) 07/27/16 12:00 Monocytes % 5.8 % (3.8-10.2) 07/27/16 12:00 Eosinophils % 0.5 % (0-4.5) 07/27/16 12:00 Basophils % 0.3 % (0-2.0) 07/27/16 12:00 Retic Count 2.12 % (0.5-1.5) H 07/24/16 09:45 Haptoglobin 150 mg/dL (34-200) 07/24/16 09:45 Assessment/Plan 31 yo P1 s/p primary LT C/S. BP improved. Appreciate Dr. Chapa consult. Continue routine postop care. Ambulation encouraged. Plan to d/c home today. Discharge instructions reviewed. Pt to f/u with Renal as outpatient.
--- NOTE | 2016-07-28 12:40 | PN ---
Progress Note (short form) - Note Progress Note: Renal Follow up for hypertension Pt seen and examined at the bedside reports abd pain is improved s/p labetalol this am no chest pain, sob, dizziness Vital Signs Temperature 98.3 F 07/28/16 07:58 Pulse Rate 99 H 07/28/16 07:58 Respiratory Rate 20 07/28/16 07:58 Blood Pressure 148/80 07/28/16 07:58 O2 Sat by Pulse Oximetry (%) 100 07/25/16 00:15 Gen: NAD, well appearing HEENT: NC/AT, MMM, No JVD CVS: tachycardic, No M/R Lungs: CTA, no rales or wheeze Abd: + tenderness Ext: 2+ edema in B/L LE, no clubbing or cyanosis Neuro: No focal defects CBC, BMP 07/27/16 12:00 07/28/16 06:00 Current Medications Acetaminophen (Tylenol -) 650 mg PO Q4H PRN PRN Reason: FEVER OR PAIN Last Admin: 07/26/16 08:15 Dose: 650 mg Acetaminophen/Codeine Phosphate (Tylenol # 3 -) 1 tab PO Q4H PRN PRN Reason: FEVER OR PAIN Last Admin: 07/28/16 11:23 Dose: 1 tab Benzocaine (Americaine Ointment -) 1 applic [place] PRN PRN PRN Reason: PAIN Benzocaine (Americaine 20% Endeavor -) 1 spray TP PRN PRN PRN Reason: PAIN Bisacodyl (Dulcolax Suppository -) 10 mg RC PRN PRN PRN Reason: CONSTIPATION Diphenhydramine HCl (Benadryl -) 25 mg PO Q8H PRN PRN Reason: FOR ITCHING Diphenhydramine HCl (Benadryl Injection -) 25 mg IVPUSH Q4H PRN PRN Reason: Pruritis Last Admin: 07/25/16 16:36 Dose: 25 mg Enoxaparin Sodium (Lovenox -) 40 mg SQ DAILY ROHAN Last Admin: 07/28/16 10:16 Dose: 40 mg Ibuprofen (Motrin -) 600 mg PO Q4H PRN PRN Reason: PAIN Last Admin: 07/26/16 08:18 Dose: 600 mg Labetalol HCl (Normodyne -) 200 mg PO Q6H PRN PRN Reason: BP > 140/90 Last Admin: 07/28/16 07:46 Dose: 200 mg Methylergonovine Maleate (Methergine Injection -) 0.2 mg IM Q4H PRN PRN Reason: EXCESSIVE BLEEDING Senna/Docusate Sodium (Pericolace -) 2 tablet PO HS PRN PRN Reason: CONSTIPATION Last Admin: 07/27/16 22:28 Dose: 2 tablet Simethicone (Mylicon -) 80 mg PO Q4H PRN PRN Reason: GAS Last Admin: 07/27/16 17:55 Dose: 80 mg Witch Kerline/Glycerin (Tucks Pads -) 1 pad TP PRN PRN PRN Reason: PAIN A/P 31 year old AA woman with PMhx of ? Hypertension (treated for about 1 month), DM who presented at 37 weeks gestation and now s/p primary with hypertension and elevated HR. # Hypertension BP reasonably controlled, required Labetalol x 1 this am UPCR was 0.31 which is above normal and could be consistent with preeclampsia however not a very big elevation Continue Labetalol 200mg BID PRN for SBP > 140 or DBP > 90 instructions to given to check BP twice daily To follow up in the office in 1 week Rx for labetalol sent to Rx low salt diet avoid nsaids #Tachycardia HR improved today EKG showed sinus tachycardia US of LE showed no DVT will monitor as outpatient #Postpatrum for discharge today Thank you Will follow as outpatient Bill Chapa DO
--- NOTE | 2016-07-30 13:39 | PATH ---
Surgical Pathology Report Patient Name: BRIDGETTE KELSEY [facility]. Rec. 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 Specimen(s) Received PLACENTA Clinical History , 12/2014- at 23 weeks (baby ), SPAB x1, diabetes-on insulin; 2005-treated with chemo for left ovarian cancer Primary c/section Final Diagnosis PLACENTA, DELIVERY: INTACT, SMALL (<400 GM), THIRD TRIMESTER PLACENTA WITH MILD PREVILLOUS, PERIVILLOUS, AND PRECHORIONIC FIBRIN DEPOSITION, THREE VESSEL UMBILICAL CORD, AND PLACENTAL MEMBRANES WITH FOCAL AMNION HYPERPLASIA AND ACUTE CHORIOAMNIONITIS. Electronically Signed Kalyan Kramer M.D. Gross Description The specimen is received fresh, labeled "placenta" and is a 396 gram, 14.5 x 14.0 x 3.0 cm placenta with attached membranes and umbilical cord. The attached membranes are garcia, thick, cloudy and insert marginally. The umbilical cord measures 21 cm in length and averages 1 cm in diameter. The cord inserts eccentrically, 4 cm to the nearest margin. No true knots or strictures are identified. Cut surface of the umbilical cord reveals 3 vessels. The surface is engel-blue with fibrin deposition and appropriate caliber vessels. The maternal surface is red-brown and intact. Sectioning reveals red-brown, spongy parenchyma. No focal lesions are identified. Inhalation Therapist sections are submitted in three cassettes as follows: 1- membrane rolls and umbilical cord; 2-3- full thickness sections of placenta. /07/29/2016 saudi07/29/2016
== END 2016-07-28 13:30 | disposition home or self-care (01) | DRG 765 ==
LOC: JLDR 06:35 → J3W 07-25 01:37
PROVIDERS: ADMIT Obstetrics & Gynecology; ATTEND Obstetrics & Gynecology
PROC: 10D00Z1 Extraction of Products of Conception, Low, Open Approach (ICD-10-PCS; principal; 2016-07-24)
PROC: 30233N1 Transfusion of Nonautologous Red Blood Cells into Peripheral Vein, Percutaneous Approach (ICD-10-PCS; 2016-07-24)
DX: O77.9 Labor and delivery complicated by fetal stress, unspecified (principal); O24.32 Unspecified pre-existing diabetes mellitus in childbirth; O34.13 Maternal care for benign tumor of corpus uteri, third trimester; E11.9 Type 2 diabetes mellitus without complications; Z79.4 Long term (current) use of insulin; D25.1 Intramural leiomyoma of uterus; O16.5 Unspecified maternal hypertension, complicating the puerperium; O75.89 Other specified complications of labor and delivery; R00.0 Tachycardia, unspecified; Z85.43 Personal history of malignant neoplasm of ovary; Z3A.37 37 weeks gestation of pregnancy; Z37.0 Single live birth
CPT/HCPCS: 36415; 36430; 36600; 80048; 80053; 81003; 81015; 82570; 82803; 82977; 83010; 84156; 84443; 84550; 85025; 85027; 85044; 85610; 85730; 86593; 86850; 86900; 86901; 86922; 87086; 87389; 88307-TC; 93005; 93010; 93970-TC; P9038; P9058

== ENCOUNTER 2018-03-19 15:02 | Day surgery (SDC) | payer OTHER ==
[2018-03-18 17:45] VITALS: BMI 33.6
--- NOTE | 2018-03-19 16:19 | HP ---
History & Physical Update - History History: No Change - Physical Physical: No Change - Assessment Assessment: No Change Currently as noted:: Menorrhagia in setting of obesity and personal h/o ovarian cancer - Plan Plan: No Change Currently as noted:: Admitted for hysteroscopy and D&C
[2018-03-19] MEDS ORDERED: MIDAZOLAM HCL 2 MG/2 ML SINGLE DOSE VIAL ONE (16:20)
[2018-03-19] MEDS ORDERED: LIDOCAINE HCL/PF 2% SDV 5ML VIAL ONE (16:20)
[2018-03-19] MEDS ORDERED: DEXAMETHASONE SOD PHOSPHATE 4 MG/1 ML VIAL ONE (16:20)
[2018-03-19] MEDS ORDERED: PROPOFOL 20 ML ONE (16:20)
[2018-03-19] MEDS ORDERED: LACTATED RINGERS SOLUTION 1,000 ML IV SCH (16:30)
[2018-03-19] MEDS ORDERED: ONDANSETRON 4 MG/2 ML VIAL IVPUSH PRN (16:30)
[2018-03-19] MEDS ORDERED: DESFLURANE GAS 240 ML BOTTLE IH ONE (16:36)
[2018-03-19] MEDS ORDERED: ceFAZolin SODIUM 1 GM VIAL IVPB ONE (16:42)
[2018-03-19] MEDS ORDERED: ceFAZolin SODIUM 1 GM VIAL ONE (16:45)
--- NOTE | 2018-03-19 17:12 | OP ---
Operative Note - Note: Operative Date: 03/19/18 Pre-Operative Diagnosis: Menorrhagia, personal h/o ovarian cancer, obesity Operation: Hysteroscopy, D&C Findings: Mildly enlarged uterus, uterine cavity sounded to 9cm Hysteroscopy showed normal uterine cavity w/o lesions Post-Operative Diagnosis: Same as Pre-op Surgeon: Lopez Haynes Anesthesiologist/CAFETERIA CASHIER: Hardik Kaye Anesthesia: General Specimens Removed: Endometrial curettings Estimated Blood Loss (mls): 5 Blood Volume Replaced (mls): 0 Fluid Volume Replaced (mls): 500 Operative Report Dictated: Yes
[2018-03-19] MEDS ORDERED: ONDANSETRON 4 MG/2 ML VIAL ONE (17:43)
[2018-03-19 19:37] VITALS: BP 152/78; PULSE 88; TEMP 98.1
--- NOTE | 2018-03-20 06:48 | OP ---
DATE OF OPERATION: 03/19/2018 PREOPERATIVE DIAGNOSIS: Menorrhagia, personal history of ovarian malignancy, obesity, fibroid uterus. POSTOPERATIVE DIAGNOSIS: Menorrhagia, personal history of ovarian malignancy, obesity, fibroid uterus. PROCEDURE: Hysteroscopy, dilation and curettage. REGIONAL WILDLIFE AGENT: None. ANESTHESIOLOGIST: Hardik Kaye MD ANESTHESIA: General. COMPLICATIONS: None. PATHOLOGY: Endometrial curettings. IV FLUIDS: 500 mL. ESTIMATED BLOOD LOSS: 5 mL. FINDINGS: Examination under anesthesia revealed a mildly enlarged anteverted uterus with no pelvic or adnexal masses. The uterine cavity was sounded to 9 cm. Hysteroscopy revealed a normal uterine cavity without lesions. Both fallopian tube ostia were visualized. Good hemostasis at the end of the procedure. DESCRIPTION OF PROCEDURE: The patient was met preoperatively. Risks, benefits, and alternatives of surgery were discussed in detail. All questions were answered. The patient was then brought to the OR with the IV running. She was placed on the surgical table in a supine position. The general anesthesia was achieved without difficulty. The patient was then placed in a dorsal lithotomy position using adjustable Dakotah stirrups. She was examined under anesthesia with the findings as described above. The time-out procedure was conducted as per standard protocol. The patient was then prepped and draped in the usual sterile fashion. A weighed speculum was used inside the vagina with good visualization of the cervix. The cervix was grasped with a single-tooth tenaculum. The cervical os did not need to be dilated. A diagnostic hysteroscope was introduced inside the uterine cavity through the cervical canal. The uterine cavity was within normal limits, and no lesions were noted. The hysteroscope was then removed. Sharp curettage was performed, and the tissue was submitted to Pathology. Good hemostasis was noted at the end of the procedure. Sponge, lap, and needle counts were correct. The patient was transferred to recovery room awake and in stable condition. Rolando [id number]
--- NOTE | 2018-03-23 18:23 | PATH ---
Surgical Pathology Report Patient Name: BRIDGETTE KELSEY [facility]. Rec. #: [id number] /Age/Gender: 1985 (Age: 33) / F Account: [id number] Location: [facility] SURGICAL Taken: 03/19/2018 Received: 03/22/2018 Reported: 03/23/2018 Physicians: Lopez Haynes M.D. Specimen(s) Received ENDOMETRIAL CURETTINGS Clinical History Fibroid uterus, excessive and frequent menstruation Final Diagnosis ENDOMETRIAL CURETTINGS: FRAGMENTS OF ENDOMETRIAL POLYP. SEPARATE FRAGMENTS SMOOTH MUSCLE BUNDLES, SUGGESTIVE OF SUBMUCOSAL LEIOMYOMA. SEPARATE FEW FRAGMENTS OF PROLIFERATIVE ENDOMETRIUM. Electronically Signed Catracho Rai M.D. Gross Description Received in formalin labeled "endometrial curettings," is a 4.0 x 3.2 x 0.4 cm aggregate of garcia-brown soft tissue fragments admixed with mucus. The formalin is filtered and the specimen is entirely submitted in 4 cassettes. /03/22/2018 saudi/03/22/2018
== END 2018-03-19 19:51 | disposition home or self-care (01) ==
LOC: JASU-SURG 15:02
PROVIDERS: ATTEND Obstetrics & Gynecology
PROC: 0UDB7ZX Extraction of Endometrium, Via Natural or Artificial Opening, Diagnostic (ICD-10-PCS; principal; 2018-03-19 16:00)
PROC: 0UJD8ZZ Inspection of Uterus and Cervix, Via Natural or Artificial Opening Endoscopic (ICD-10-PCS; 2018-03-19 16:00)
DX: N92.0 Excessive and frequent menstruation with regular cycle (principal); D25.9 Leiomyoma of uterus, unspecified; Z85.43 Personal history of malignant neoplasm of ovary; D64.9 Anemia, unspecified; I10 Essential (primary) hypertension; E11.9 Type 2 diabetes mellitus without complications
CPT/HCPCS: 36415; 84703; 86850; 86900; 86901; 88305-TC; 94760